=== PATIENT | female | born 1990 | race Caucasian/White ===

== ENCOUNTER 2017-03-26 10:17 | Emergency (ER) | payer MEDICAID ==
[~2017-03-26] VITALS: Ht 167.6 cm; Wt 85.0 kg
[~2017-03-26 10:17] MED LIST: PROM25TA10 PO
[2017-03-26 10:20] VITALS: BP 116/59; PULSE 76; RESP 16; TEMP 98.4; O2SAT 100
[2017-03-26] MEDS ORDERED: prenatal vitamins (10:40)
[2017-03-26] MEDS ORDERED: ONDANSETRON HCL 4 MG/2 ML VIAL IV PUSH ONE (11:30)
--- NOTE | 2017-03-26 11:38 | PD ---
HPI Chief Complaint: GI Complaint Time Seen by Provider: 10:45 Travel History International Travel<30 days: No Contact w/Intl Traveler<30days: No Traveled to known affect area: No History of Present Illness HPI 27yo F who is 12 weeks 2 days per LMP of 12/30/16 presents to the ED with c/o nausea and vomiting. Pt states she has occasional periumbilical pain with the vomiting. Denies any fever, chest pain, sob, dysuria, hematuria, vaginal bleeding, focal weakness or numbness. Pt has OBGYN Dr. Aguirre and called her and was told to come to the ED. Pt had US this that showed IUP with heart rate. PFSH Past Medical History Cancer: No Cardiovascular Problems: No Cerebrovascular Accident: No Diminished Hearing: No Endocrine: No Gastrointestinal Disorders: No Genitourinary: No Headaches: Yes Immune Disorder: No Implanted Vascular Access Dvce: No Musculoskeletal: No Neurologic: Yes Psychiatric: No Reproductive: No Respiratory: Yes Immunizations Current: Yes Migraines: No Seizures: No ?: LMP: 01/29/17 : 5 Para: 2 Miscarriage: 2 Past Surgical History Abdominal Surgery: Yes (UMBILICAL HERNIA) Cardiac Surgery: No Section: Yes (x2) Cholecystectomy: Yes Ear Surgery: No Endocrine Surgery: No Eye Surgery: No Gynecologic Surgery: Yes Neurologic Surgery: No Oral Surgery: No Pacemaker: No Thoracic Surgery: No Other Surgery: Yes (UMBILICAL HERNIA) Social History Alcohol Use: No Tobacco Use: No Substance Use: No Allergies-Medications (Allergen,Severity, Reaction): Coded Allergies: No Known Allergies (Verified , 03/25/17) Reported Meds & Prescriptions Reported Meds & Active Scripts Active Phenergan (Promethazine HCl) 25 Mg Tablet 25 Mg PO Q6H PRN Reported [ vitamins] DAILY Review of Systems Except as stated in HPI: all other systems reviewed are Neg Physical Exam Narrative GENERAL: 27yo F in mild distress. SKIN: Focused skin assessment warm/dry. HEAD: Atraumatic. Normocephalic. CARDIOVASCULAR: Regular rate and rhythm. No murmur appreciated. RESPIRATORY: No accessory muscle use. Clear to auscultation. Breath sounds equal bilaterally. GASTROINTESTINAL: Abdomen soft, non-tender, nondistended. No rebound tenderness or guarding. MUSCULOSKELETAL: No obvious deformities. No clubbing. No cyanosis. No edema. NEUROLOGICAL: Awake and alert. No obvious cranial nerve deficits. Motor grossly within normal limits. Normal speech. PSYCHIATRIC: Appropriate mood and affect; insight and judgment normal. Data Data Last Documented VS Vital Signs Date Time Temp Pulse Resp B/P Pulse Ox O2 Delivery O2 Flow Rate FiO2 03/26/17 10:20 98.4 76 16 116/59 100 Room Air Orders Ondansetron Inj (Zofran Inj) (03/26/17 11:30) Complete Blood Count With Diff (03/26/17 11:27) Comprehensive Metabolic Panel (03/26/17 11:27) Beta Hcg (Quant/Titer) (03/26/17 11:27) Urinalysis - C+S If Indicated (03/26/17 11:27) Sodium Chlor 0.9% 1000 Ml Inj (Ns 1000 M (03/26/17 12:30) Labs Laboratory Tests Test 03/26/17 11:34 White Blood Count 8.1 TH/MM3 Red Blood Count 3.99 MIL/MM3 Hemoglobin 11.8 GM/DL Hematocrit 34.9 % Mean Corpuscular Volume 87.6 FL Mean Corpuscular Hemoglobin 29.6 PG Mean Corpuscular Hemoglobin 33.8 % Concent Red Cell Distribution Width 12.3 % Platelet Count 265 TH/MM3 Mean Platelet Volume 7.8 FL Neutrophils (%) (Auto) 67.8 % Lymphocytes (%) (Auto) 22.9 % Monocytes (%) (Auto) 8.3 % Eosinophils (%) (Auto) 0.3 % Basophils (%) (Auto) 0.7 % Neutrophils # (Auto) 5.5 TH/MM3 Lymphocytes # (Auto) 1.9 TH/MM3 Monocytes # (Auto) 0.7 TH/MM3 Eosinophils # (Auto) 0.0 TH/MM3 Basophils # (Auto) 0.1 TH/MM3 CBC Comment DIFF FINAL Differential Comment Urine Color YELLOW Urine Turbidity CLEAR Urine pH 8.0 Urine Specific [place] 1.009 Urine Protein NEG mg/dL Urine Glucose (UA) NEG mg/dL Urine Ketones NEG mg/dL Urine Occult Blood NEG Urine Nitrite NEG Urine Bilirubin NEG Urine Urobilinogen LESS THAN 2.0 MG/DL Urine Leukocyte Esterase TRACE Urine RBC 2 /hpf Urine WBC 3 /hpf Urine Squamous Epithelial 4 /hpf Cells Urine Bacteria OCC /hpf Urine Mucus FEW /lpf Microscopic Urinalysis Comment CULT NOT INDICATED Sodium Level 136 MEQ/L Potassium Level 3.5 MEQ/L Chloride Level 105 MEQ/L Carbon Dioxide Level 24.3 MEQ/L Anion Gap 7 MEQ/L Blood Urea Nitrogen 7 MG/DL Creatinine 0.64 MG/DL Estimat Glomerular Filtration 110 ML/MIN Rate Random Glucose 84 MG/DL Calcium Level 9.1 MG/DL Total Bilirubin 1.0 MG/DL Aspartate Amino Transf 13 U/L (AST/SGOT) Alanine Aminotransferase 17 U/L (ALT/SGPT) Alkaline Phosphatase 47 U/L Total Protein 7.4 GM/DL Albumin 3.9 GM/DL Human Chorionic Gonadotropin, 530[address] MIU/ML Quant MDM Medical Decision Making Medical Screen Exam Complete: Yes Emergency Medical Condition: Yes Differential Diagnosis Hyperemesis gravidarum vs. dehydration Narrative Course 27yo F with nausea and vomiting for 24 hours. Pt has no abdominal pain on exam. [place] [address]. CMP unremarkable. UA showed WBC 3. Culture not indicated. Negative ketone. Pt given zofran and NS IVF. States she feels much better and no longer nauseous. States she is hungry and now tolerating PO. Diagnosis Primary Impression: Vomiting Qualified Code: R11.2 - Non-intractable vomiting with nausea, unspecified vomiting type Patient Instructions: General Instructions Departure Forms: Tests/Procedures Additional Instructions: Please follow up with your OBGYN in 1-2 days. Return to the ED if symptoms worsen. Med/Other Pt SpecificInfo: No Change to Meds Disposition: 01 DISCHARGE HOME Condition: Stable MaryOksana DO Mar 26, 2017 11:38
[2017-03-26 11:56] LABS: AUTOMATED NEUTROPHIL # 5.5 TH/MM3 (1.8-7.7); BASOPHIL # 0.1 TH/MM3 (0-0.2); BASOPHIL % 0.7 % (0.0-2.0); EOSINOPHIL % 0.3 % (0.0-4.0); HEMATOCRIT 34.9 % (35.0-46.0); HEMO FLAGS DIFF FINAL; LYMPH % 22.9 % (9.0-44.0); LYMPHOCYTE # 1.9 TH/MM3 (1.0-4.8); MEAN CELL VOLUME 87.6 FL (80.0-100.0); MEAN CORPUSCULAR HEMOGLOBIN 29.6 PG (27.0-34.0); MEAN CORPUSCULAR HGB CONC 33.8 % (32.0-36.0); MONO % 8.3 % (0.0-8.0); NEUT % 67.8 % (16.0-70.0); PLATELET COUNT 265 TH/MM3 (150-450); RED BLOOD COUNT 3.99 MIL/MM3 (4.00-5.30); RED CELL DISTRIBUTION WIDTH 12.3 % (11.6-17.2); WHITE BLOOD COUNT 8.1 TH/MM3 (4.0-11.0)
[2017-03-26 12:00] LABS: BACTERIA, URINE OCC /hpf; BLOOD, URINE NEG (NEG); COMMENT (UR) CULT NOT INDICATED; CULTURE IF INDICATED CULT NOT INDICATED; GLUCOSE,URINE NEG (NEG); KETONE, URINE NEG (NEG); MUCUS URINE FEW /lpf (OCC); NITRITE,URINE NEG (NEG); SQUAMOUS EPITHELIAL CELL URINE 4 /hpf (0-5); URINE COLOR YELLOW (YELLW/STRAW)
[2017-03-26 12:22] LABS: ANION GAP 7 MEQ/L (5-15); AST (GOT) 13 U/L (15-37); BICARBONATE 24.3 MEQ/L (21.0-32.0); BLOOD UREA NITROGEN 7 MG/DL (7-18); CHLORIDE 105 MEQ/L (98-107); GLOMERULAR FILTRATION RATE 110 ML/MIN (>89); POTASSIUM 3.5 MEQ/L (3.5-5.1); SODIUM (NA) 136 MEQ/L (136-145)
[2017-03-26 12:23] LABS: ALT (GPT) 17 U/L (10-53)
[2017-03-26] MEDS ORDERED: SODIUM CHLOR 0.9% 1000 ML INJ 1,000 ML IV ONE (12:30)
[2017-03-26 12:39] LABS: ALKALINE PHOSPHATASE 47 U/L (45-117); BETA HCG QUANT 26021 MIU/ML (0-5)
[2017-03-26] MEDS ORDERED: PROM25TA10 PO (12:43)
== END 2017-03-26 14:40 | disposition home or self-care (01) ==
LOC: NEPD 10:17
DX: O21.9 Vomiting of pregnancy, unspecified (principal); Z79.899 Other long term (current) drug therapy; Z3A.12 12 weeks gestation of pregnancy; Z34.91 Encounter for supervision of normal pregnancy, unspecified, first trimester
CPT/HCPCS: 80053; 81001; 84702; 85025; 96374; 99284; J2405; J7030

== ENCOUNTER 2017-06-04 11:08 | Emergency (ER) | payer MEDICAID ==
[~2017-06-04] VITALS: Ht 165.1 cm; Wt 85.0 kg
[~2017-06-04 11:08] MED LIST changes: +NITR1CAP36 PO; +PREN1CAP7 PO; +prenatal vitamins
[2017-06-04 11:10] VITALS: BP 123/56; PULSE 76; RESP 14; TEMP 97.8; O2SAT 100
--- NOTE | 2017-06-04 11:14 | PD ---
Physical Exam Time Seen by Provider: 11:12 Narrative 27-year-old female, 17 weeks , with complaint of right upper tooth pain for the last couple days and right flank pain for the past couple weeks. Denies abdominal pain or cramping. Was treated for UTI with antibiotics a couple weeks ago. Reports vaginal discharge and dysuria. Denies fevers. Reports vomiting throughout her . Patient seen in triage. Vital signs reviewed. Patient taken to medical bed. Data Data Last Documented VS Vital Signs Date Time Temp Pulse Resp B/P (MAP) Pulse Ox O2 Delivery O2 Flow Rate FiO2 06/04/17 11:10 97.8 76 14 123/56 (78) 100 MDM Supervised Visit with HOWIE: Kathy Hernandes Jun 04, 2017 11:14
--- NOTE | 2017-06-04 11:47 | PD ---
HPI Chief Complaint: Complaint Time Seen by Provider: 11:26 Travel History International Travel<30 days: No Contact w/Intl Traveler<30days: No Traveled to known affect area: No History of Present Illness HPI 27-year-old female presents to the emergency department for evaluation of right upper tooth pain, right flank pain, dysuria, abnormal vaginal discharge. Patient reports being 17 weeks . She is a G4, P2 with one miscarriage and 2 live first. Patient reports that she has had chronic right upper tooth pain due to the tubing tripped. However, last 2 days, she has noticed some gingival swelling. She states that her dentist is waiting for to be completed before he does dental work on her. Patient also reports some right flank and has been ongoing for approximately 3 weeks. She states she was diagnosed with a UTI approximately 3 weeks ago and completed a course of antibiotics. Her lamp shade joiner is Windy Castillo. Patient also reports some yellow vaginal discharge for the past 2 days. She denies any risk of STDs reporting that she has been tested which was negative and has not had any new sexual partner since. Patient reports dysuria as well. Patient reports nausea due to which has been the same and is unchanged. She denies any abdominal pain or cramping. No chest pain or shortness of breath. No fevers, but she states she has had chills. PFSH Past Medical History Cancer: No Cardiovascular Problems: No Cerebrovascular Accident: No Diminished Hearing: No Endocrine: No Gastrointestinal Disorders: No Genitourinary: No Headaches: Yes Immune Disorder: No Implanted Vascular Access Dvce: No Musculoskeletal: No Neurologic: Yes Psychiatric: No Reproductive: No Respiratory: Yes Immunizations Current: Yes Migraines: No Seizures: No ?: : 5 Para: 2 Miscarriage: 2 Past Surgical History Abdominal Surgery: Yes (UMBILICAL HERNIA) Cardiac Surgery: No Section: Yes (x2) Cholecystectomy: Yes Ear Surgery: No Endocrine Surgery: No Eye Surgery: No Gynecologic Surgery: Yes Neurologic Surgery: No Oral Surgery: No Pacemaker: No Thoracic Surgery: No Other Surgery: Yes (UMBILICAL HERNIA) Social History Alcohol Use: No Tobacco Use: No Substance Use: No Allergies-Medications (Allergen,Severity, Reaction): Coded Allergies: No Known Allergies (Verified , 04/22/17) Reported Meds & Prescriptions Reported Meds & Active Scripts Active Nitrofurantoin Macrocrystal 100 Mg Cap 100 Mg PO BID Citranatal [place] ( W/O Vit A W/ Fe Fumar) 27-1-260 Mg Cap 1 Cap PO DAILY Phenergan (Promethazine HCl) 25 Mg Tablet 25 Mg PO Q6H PRN Reported [ vitamins] DAILY Review of Systems Except as stated in HPI: all other systems reviewed are Neg Physical Exam Narrative GENERAL: Well-nourished, well-developed female patient, afebrile. SKIN: Focused skin assessment warm/dry. HEAD: Normocephalic. Atraumatic. No facial swelling. ENT: Mucosa pink and moist. No erythema or exudates. No uvular edema. No uvular , palatal, or tonsillar deviation. Airway patent. Nasal turbinates appear normal without nasal blood, purulent drainage or septal hematoma. Bilateral tympanic membranes are clear without erythema or perforation. Back right upper tooth is chipped and gingiva is tenderness to palpation. No obvious abscess. EYES: No scleral icterus. No injection or drainage. NECK: Supple, trachea midline. No JVD or lymphadenopathy. CARDIOVASCULAR: Regular rate and rhythm without murmurs, gallops, or rubs. RESPIRATORY: Breath sounds equal bilaterally. No accessory muscle use. Lungs sounds are clear to auscultation. GASTROINTESTINAL: Abdomen soft, non-tender, nondistended. No abdominal pain to palpation. MUSCULOSKELETAL: No cyanosis, or edema. BACK: Nontender without obvious deformity. No CVA tenderness. GENITOURINARY: Normal external genitalia without lesions or erythema. Vaginal vault with large amount of white drainage noted. Cervical os was closed without drainage. No cervical motion tenderness. Uterus nontender and nonenlarged. Bilateral adnexa nontender without masses. This exam was done with BECKY Feliciano, at bedside. Data Data Last Documented VS Vital Signs Date Time Temp Pulse Resp B/P (MAP) Pulse Ox O2 Delivery O2 Flow Rate FiO2 06/04/17 11:10 97.8 76 14 123/56 (78) 100 Orders Orders Urinalysis - C+S If Indicated (06/04/17 11:34) Gc And Chlamydia Pcr (06/04/17 11:34) Wet Prep Profile (06/04/17 11:34) Heart Tones (06/04/17 11:34) Urine Culture (06/04/17 12:06) Labs Laboratory Tests Test 06/04/17 11:43 06/04/17 12:04 Urine Color LIGHT-YELLOW Urine Turbidity HAZY Urine pH 6.5 Urine Specific [place] 1.006 Urine Protein NEG mg/dL Urine Glucose (UA) NEG mg/dL Urine Ketones TRACE mg/dL Urine Occult Blood SMALL Urine Nitrite NEG Urine Bilirubin NEG Urine Urobilinogen LESS THAN 2.0 MG/DL Urine Leukocyte Esterase SMALL Urine RBC 1 /hpf Urine WBC 3 /hpf Urine Squamous Epithelial Cells 4 /hpf Urine Transitional Epithelial Cells <1 /hpf Urine Bacteria RARE /hpf Microscopic Urinalysis Comment CULT NOT INDICATED Clue Cells (Wet Prep) NONE SEEN Vaginal Trichomonas (Wet Prep) NONE SEEN Vaginal Yeast (Wet Prep) NONE SEEN MDM Medical Decision Making Medical Screen Exam Complete: Yes Emergency Medical Condition: Yes Medical Record Reviewed: Yes Differential Diagnosis UTI vs pyelonephritis vs. gingivitis vs. toothache vs. gingival abscess vs. BV vs. cervicitis Narrative Course 27 year old female presents to the emergency department for evaluation of toothache, dysuria, vaginal discharge. UA, FHT, pelvic exam is ordered and pending. UA shows small leukocyte esterase, small bacteria. FHT are 140 Wet prep is negative for Trichomonas, yeast, bacterial vaginosis. Patient will be discharged with prescription for Keflex for bacteria in the urine, toothache. She is to follow up with her lamp shade joiner. She verbalizes agreement and understanding. The patient was discharged in stable condition with instructions, including return instructions and follow up instructions. Diagnosis Primary Impression: Urinary tract infection Qualified Codes: N30.00 - Acute cystitis without hematuria Additional Impression: Toothache Referrals: [facility] call for appointment Patient Instructions: General Instructions, Toothache (ED), Urinary Tract Infection in (ED) Additional Instructions: Take antibiotic as directed until gone. [id number] Tylenol for pain. Follow-up with your lamp shade joiner. Return to the emergency department for any acute worsening of symptoms. Med/Other Pt SpecificInfo: Prescription(s) given Scripts Cephalexin (Keflex) 500 Mg Cap 500 MG PO Q12H for Infection for 7 Days, #14 CAP 0 Refills Prov: Rachel Tiwari 06/04/17 Disposition: 01 DISCHARGE HOME Condition: Stable Rachel Tiwari Jun 04, 2017 11:47
[2017-06-04 12:03] LABS: BACTERIA, URINE RARE /hpf; BLOOD, URINE SMALL (NEG); COMMENT (UR) CULT NOT INDICATED; CULTURE IF INDICATED CULT NOT INDICATED; GLUCOSE,URINE NEG (NEG); KETONE, URINE TRACE mg/dL (NEG); NITRITE,URINE NEG (NEG); PH, URINE 6.5 (5.0-8.5); SQUAMOUS EPITHELIAL CELL URINE 4 /hpf (0-5); TRANSITIONAL EPI CELLS, URINE <1 /hpf; URINE COLOR LIGHT-YELLOW (YELLW/STRAW)
--- NOTE | 2017-06-04 12:46 | PD ---
Data Data Last Documented VS Vital Signs Date Time Temp Pulse Resp B/P (MAP) Pulse Ox O2 Delivery O2 Flow Rate FiO2 06/04/17 11:10 97.8 76 14 123/56 (78) 100 Orders Orders Urinalysis - C+S If Indicated (06/04/17 11:34) Gc And Chlamydia Pcr (06/04/17 11:34) Wet Prep Profile (06/04/17 11:34) Heart Tones (06/04/17 11:34) Urine Culture (06/04/17 12:06) Labs Laboratory Tests Test 06/04/17 11:43 06/04/17 12:04 Urine Color LIGHT-YELLOW Urine Turbidity HAZY Urine pH 6.5 Urine Specific [place] 1.006 Urine Protein NEG mg/dL Urine Glucose (UA) NEG mg/dL Urine Ketones TRACE mg/dL Urine Occult Blood SMALL Urine Nitrite NEG Urine Bilirubin NEG Urine Urobilinogen LESS THAN 2.0 MG/DL Urine Leukocyte Esterase SMALL Urine RBC 1 /hpf Urine WBC 3 /hpf Urine Squamous Epithelial Cells 4 /hpf Urine Transitional Epithelial Cells <1 /hpf Urine Bacteria RARE /hpf Microscopic Urinalysis Comment CULT NOT INDICATED Clue Cells (Wet Prep) NONE SEEN Vaginal Trichomonas (Wet Prep) NONE SEEN Vaginal Yeast (Wet Prep) NONE SEEN MDM Supervised Visit with HOWIE: Yes Narrative Course The history, exam, and medical decision-making in the associated mid-level provider note were completed with my assistance. I reviewed and agree with the findings presented. I attest that I had a [id number] encounter with the patient on the same day, and personally performed and documented my assessment and findings in the medical record. *My assessment and Findings: 27 year-old woman, early with dental and facial pain, also with some vaginal discharge and some kidney pain. Looks well. We'll check urine, pelvic , supportive treatment for dental infection. Domingo Sánchez MD Jun 04, 2017 12:46
[2017-06-04] MEDS ORDERED: CEPH-460 PO (12:53)
[2017-06-04 13:06] VITALS: BP 103/54
[2017-06-04 16:04] LABS: CHLAMYDIA PCR NOT DETECTED (NOT DETECT); NEISSERIA PCR NOT DETECTED (NOT DETECT)
== END 2017-06-04 13:10 | disposition home or self-care (01) ==
LOC: NEPD 11:08
DX: O23.42 Unspecified infection of urinary tract in pregnancy, second trimester (principal); B96.20 Unspecified Escherichia coli [E. coli] as the cause of diseases classified elsewhere; Z3A.17 17 weeks gestation of pregnancy; K08.89 Other specified disorders of teeth and supporting structures
CPT/HCPCS: 81001; 87077; 87086; 87186; 87210; 87491; 87591; 99283

== ENCOUNTER → 2017-07-17 | Outpatient (CLI) | payer MEDICAID ==
[~2017-07-17] MED LIST changes: -NITR1CAP36 PO; -PROM25TA10 PO
== END ==
LOC: HPND 12:00
PROVIDERS: ATTEND Obstetrics & Gynecology
DX: O35.8XX0 Maternal care for other (suspected) fetal abnormality and damage, not applicable or unspecified (principal); O34.212 Maternal care for vertical scar from previous cesarean delivery; Z68.31 Body mass index [BMI] 31.0-31.9, adult
CPT/HCPCS: 76811; 76825; 76827; 93325

== ENCOUNTER → 2017-08-19 | Outpatient (CLI) | payer MEDICAID ==
[~2017-08-19] MED LIST changes: +SULF1TAB23 PO
== END ==
LOC: HPND 08:37
PROVIDERS: ATTEND Obstetrics & Gynecology
DX: O35.8XX0 Maternal care for other (suspected) fetal abnormality and damage, not applicable or unspecified (principal); O34.212 Maternal care for vertical scar from previous cesarean delivery; O99.212 Obesity complicating pregnancy, second trimester; E66.9 Obesity, unspecified; Z68.41 Body mass index [BMI] 40.0-44.9, adult
CPT/HCPCS: 76816

== ENCOUNTER → 2017-09-16 | Outpatient (CLI) | payer MEDICAID ==
[~2017-09-16] MED LIST changes: -SULF1TAB23 PO
== END ==
LOC: HPND 08:40
PROVIDERS: ATTEND Obstetrics & Gynecology
DX: O35.8XX0 Maternal care for other (suspected) fetal abnormality and damage, not applicable or unspecified (principal); O99.212 Obesity complicating pregnancy, second trimester; E66.9 Obesity, unspecified; O34.212 Maternal care for vertical scar from previous cesarean delivery
CPT/HCPCS: 76816

== ENCOUNTER 2017-10-30 16:37 | Emergency (ER) | payer MEDICAID ==
[~2017-10-30 16:37] MED LIST changes: +PREN1CHW7 PO
--- NOTE | 2017-10-30 17:31 | PD ---
HPI Chief Complaint Decreased movement and lower abdominal pain Date Seen: Oct 30, 2017 Time Seen: 17:26 Travel History International Travel<30 Days: No Contact w/Intl Traveler<30Days: No Known Affected Area: No History of Present Illness HPI 27-year-old at 37 weeks 6 days comes in complaining of decreased movement 1 day and lower abdominal pain off and on since Saturday night. Patient was seen in the office today and had a cervical exam cervix was closed at this time. Patient has a history of a two-vessel cord with a normal level 2 ultrasound. History of 2 prior section and she had a set up for November 2 Weeks Gestation: 37 Para: 2 : 5 History Past Medical History Medical History: Denies Significant Hx Obstetric History Obstetric History Cholecystectomy 2 Family History Family History: Negative Social History Alcohol Use: No Tobacco Use: No Substance Abuse: No Allergies-Medications (Allergen,Severity, Reaction): Coded Allergies: No Known Allergies (Verified Allergy, Unknown, 10/30/17) Home Meds Active Scripts Vit W/ Ferric Phospha (Vitafol Gummies 3.33-0.333-34.8 mg) 1 Chw Chw, 3.33 CAP PO DAILY Y for daily for 90 Days, #90 CAP 3 Refills Prov:Hay Issa MD 09/30/17 W/O Vit A W/ Fe Fumar (Citranatal [place]) 27-1-260 Mg Cap, 1 CAP PO DAILY for Nutritional Supplement, #30 CAP 2 Refills Prov:Desire Diaz CNM [facility] 04/22/17 Reported Medications [ vitamins] No Conflict Check, DAILY 03/26/17 Review of Systems Except as stated in HPI: all other systems reviewed are Neg Physical Exam Narrative GENERAL: Well-nourished, well-developed patient. SKIN: Warm and dry. HEAD: Normocephalic and atraumatic. EYES: No scleral icterus. No injection or drainage. ENT: No nasal drainage noted. Mucous membranes pink. Airway patent. NECK: Supple, trachea midline. No JVD. CARDIOVASCULAR: Regular rate and rhythm without murmurs, gallops, or rubs. RESPIRATORY: Breath sounds equal bilaterally. No accessory muscle use. ABDOMEN/GI: Abdomen soft, non-tender, bowel sounds present, no rebound, no guarding Gravid to [-37] weeks size Fundal Height: [-] GENITOURINARY: External Genitalia: intact and normal in appearance BUS glands: [-Normal] Cervix: [Posterior-] Dilatation: [-Closed] Effacement: [-Long] Station: [-3-] Presentation: [Vertex-] Membranes: [intact or ruptured] intact Uterine Contractions: [-] Irregular FHT's: Category: [-] 1 Baseline: [-] 150 Reactive: [-] Moderate Variability: [-] Moderate Decels: [-] Absent EXTREMITIES: No cyanosis or edema. BACK: Nontender without obvious deformity. No CVA tenderness. NEUROLOGICAL: Awake and alert. Motor and sensory grossly within normal limits. Five out of 5 muscle strength in all muscle groups. Normal speech. Data Data Vital Signs Reviewed: Yes [facility] Medical Record Reviewed: Yes Plan 27-year-old at 37 weeks 6 days with occasional contractions, round ligament pain Decreased movement with a normal nonstress test-if decreased movement were to continue would recommend twice-weekly testing until her section History of two-vessel cord Return to hospital for any symptoms of labor precautions were reviewed with the patient Diagnosis Diagnosis: Primary Impression: 37 weeks gestation of Additional Impressions: Two vessel umbilical cord in [place] , antepartum Decreased movements in third trimester Irregular uterine contractions Previous section complicating , antepartum condition or complication Disposition: 01 DISCHARGE HOME Stephenie Silva MD Oct 30, 2017 17:31
== END 2017-10-30 17:42 | disposition home or self-care (01) ==
LOC: HOBED 16:37
DX: O36.8130 Decreased fetal movements, third trimester, not applicable or unspecified (principal); Z3A.37 37 weeks gestation of pregnancy; R10.30 Lower abdominal pain, unspecified
CPT/HCPCS: 59025

== ENCOUNTER 2017-11-07 08:23 | Inpatient (IN) | payer MEDICAID ==
[~2017-11-07] VITALS: Ht 167.6 cm; Wt 108.0 kg
[2017-11-07] VITALS (14 sets, daily range): BP systolic 105–117; BP diastolic 54–76; PULSE 61–80; RESP 16–18; TEMP 97.6–98.6; O2SAT 99–100
[~2017-11-07 08:23] MED LIST changes: -PREN1CHW7 PO; -prenatal vitamins
[2017-11-07] MEDS ORDERED: LACTATED RINGER'S 1000 ML INJ 1,000 ML IV ONE (09:11)
--- NOTE | 2017-11-07 09:32 | HHI.HP ---
HPI Chief Complaint 27-year-old at 39/0 presenting for scheduled . Travel History International Travel<30 Days: No Contact w/Intl Traveler<30Days: No History of Present Illness HPI 27-year-old at 39/0 presenting for scheduled . Normal light white discharge. Denies contractions, large discharge of fluid, abnormal discharge color/smell, dysuria, hematuria, frequency, change in urine smell/ color, change in bowel habits, nausea, vomiting, fever, chills, abdominal pain, chest pain, shortness of breath, headache, change in vision. Reports normal movement. No other complaints today. Weeks Gestation: 39 Para: 2 : 5 History Past Medical History Medical History: Denies Significant Hx Past Surgical History Narrative Surgical 2 Cholecystectomy Family History Family History: Negative Social History Alcohol Use: No Tobacco Use: No Substance Abuse: No Allergies-Medications (Allergen,Severity, Reaction): Coded Allergies: No Known Allergies (Verified Allergy, Unknown, 10/30/17) Home Meds Active Scripts W/O Vit A W/ Fe Fumar (Citranatal [place]) 27-1-260 Mg Cap, 1 CAP PO DAILY for Nutritional Supplement, #30 CAP 2 Refills Prov:Desire Diaz CNM [facility] 04/22/17 Review of Systems General / Constitutional: No: Fever, Chills Eyes: No: Diploplia, Blurred Vision, Visual changes, Pain HENT: No: Headaches, Vertigo Cardiovascular: No: Irregular Rhythm, Chest Pain or Discomfort, Palpitations Respiratory: No: Cough, Short of Breath, Wheezing Gastrointestinal: No: Nausea, Vomiting, Diarrhea, Abdominal Pain, Hematemesis, Hematochezia, Constipation, Changes in Bowel Habits Genitourinary: No: Urgency, Frequency, Dysuria, Nocturia, Hematuria Musculoskeletal: No: Limited ROM, Weakness Skin: No Rash, No Itching, No Dryness Neurologic: No: Weakness, Dizziness Psychiatric: No: Anxiety, Depression Endocrine: No: Polydipsia, Polyuria Hematologic/Lymphatic: No Easy Bruising, No Lymph Node Enlargement Physical Exam Narrative GENERAL: Well-nourished, well-developed patient. SKIN: Warm and dry. HEAD: Normocephalic and atraumatic. EYES: No scleral icterus. No injection or drainage. ENT: No nasal drainage noted. Mucous membranes pink. Airway patent. NECK: Supple, trachea midline. No JVD. CARDIOVASCULAR: Regular rate and rhythm without murmurs, gallops, or rubs. RESPIRATORY: Breath sounds equal bilaterally. No accessory muscle use. ABDOMEN/GI: Abdomen soft, non-tender, bowel sounds present, no rebound, no guarding FHT's: Category: 1 Baseline: 135 Reactive: Yes Variability: Moderate Decels: None EXTREMITIES: No cyanosis or edema. BACK: Nontender without obvious deformity. No CVA tenderness. NEUROLOGICAL: Awake and alert. Motor and sensory grossly within normal limits. Five out of 5 muscle strength in all muscle groups. Normal speech. Caprini VTE Risk Assessment Caprini VTE Risk Assessment: No/Low Risk (score <= 1) Data Data Vital Signs Reviewed: Yes Orders Orders Admit To Inpatient (11/07/17 ) Code Status (11/07/17 09:11) Vital Signs (Adult) .ON ADMISSION (11/07/17 09:11) Activity Oob Ad Estephania (11/07/17 09:11) Heart (11/07/17 09:11) Urinary Catheter Management KEN.Q8H (11/07/17 09:11) ^ Preps (11/07/17 09:11) Scd / Nikolas / Foot Pump KEN.QSHIFT (11/07/17 09:11) ^ Ultrasound For Locatio (11/07/17 09:11) Diet Npo (11/07/17 Breakfast) Lactated Ringer's 1000 Ml Inj (Lr 1000 M (11/07/17 09:11) Lactated Ringer's 1000 Ml Inj (Lr 1000 M (11/07/17 09:41) Citric Acid-Sodium Citrate Liq (Bicitra (11/07/17 10:45) Type And Screen (11/07/17 09:11) Complete Blood Count With Diff (11/07/17 09:11) Urinalysis - C+S If Indicated (11/07/17 09:11) Drug Screen, Random Urine (11/07/17 09:11) Inpatient Certification (11/07/17 ) Specimen To Be Collected PRN (11/07/17 09:11) Specimen To Be Collected PRN (11/07/17 09:11) Cefazolin 2 Gm Premix (Ancef 2 Gm Premix (11/07/17 10:15) Assessment/Plan Assessment and Plan 27-year-old at 39/0 who presented for scheduled . Currently without signs of labor, no signs of infection. - section preop management -FHT category 1, reassuring - section today D/W Dr. Hima Rosario,Karl Mireles MD R1 Nov 07, 2017 09:32
[2017-11-07] MEDS ORDERED: LACTATED RINGER'S 1000 ML INJ 1,000 ML IV SCH ×2 (09:41→17:12)
[2017-11-07 09:57] LABS: AUTOMATED NEUTROPHIL # 8.5 TH/MM3 (1.8-7.7); BASOPHIL % 0.3 % (0.0-2.0); EOSINOPHIL # 0.1 TH/MM3 (0-0.4); EOSINOPHIL % 0.5 % (0.0-4.0); HEMATOCRIT 33.9 % (35.0-46.0); HEMOGLOBIN 11.6 GM/DL (11.6-15.3); LYMPH % 14.6 % (9.0-44.0); LYMPHOCYTE # 1.6 TH/MM3 (1.0-4.8); MEAN CELL VOLUME 83.7 FL (80.0-100.0); MEAN CORPUSCULAR HEMOGLOBIN 28.6 PG (27.0-34.0); MEAN CORPUSCULAR HGB CONC 34.2 % (32.0-36.0); MEAN PLATELET VOLUME 8.1 FL (7.0-11.0); MONO % 5.8 % (0.0-8.0); MONOCYTE # 0.6 TH/MM3 (0-0.9); NEUT % 78.8 % (16.0-70.0); PLATELET COUNT 296 TH/MM3 (150-450); RED BLOOD COUNT 4.05 MIL/MM3 (4.00-5.30); RED CELL DISTRIBUTION WIDTH 13.2 % (11.6-17.2); WHITE BLOOD COUNT 10.8 TH/MM3 (4.0-11.0)
[2017-11-07] MEDS ORDERED: MORPHINE SULFATE PF 5 MG/10 ML VIAL ONE (10:03)
[2017-11-07] MEDS ORDERED: ACETAMINOPHEN 1000 MG/100 ML 100 ML IV ONE ×2 (10:03→11:00)
[2017-11-07 10:06] LABS: BACTERIA, URINE MOD /hpf; BILIRUBIN, URINE NEG (NEG); BLOOD, URINE NEG (NEG); GLUCOSE,URINE NEG (NEG); KETONE, URINE NEG (NEG); MUCUS URINE FEW /lpf (OCC); NITRITE,URINE POS (NEG); SQUAMOUS EPITHELIAL CELL URINE 14 /hpf (0-5); URINE COLOR YELLOW (YELLW/STRAW); URINE LEUKOCYTE ESTERASE SMALL (NEG)
[2017-11-07] MEDS ORDERED: ceFAZolin 2 GM PREMIX 50 ML IV SCH (10:15)
--- NOTE | 2017-11-07 10:39 | HHI.PR ---
[facility] Note Note R/B/A of were discussed with the patient. Specifically we reviewed risks of bleeding, infection, pain, injury to baby or internal organs/nerves/ vessels/structures. We reviewed the rare but possible need for emergency hysterectomy if uncontrolled bleeding occurs. She was also counseled on the rare but possible need for a blood transfusion and the associated risks of allergic reaction, HIV (1:1M), and hepatitis (4:1M). She voiced understanding, all questions were answered, and consents were signed. Pt was advised on risk of subsequent c/s after 3 (accreta, hemorrhage, injury) and was advised on BTL and LARC. She declines BTL at this time. LARC strongly encouraged. Anterior placenta confirmed by US diagnostics to be ABOVE prior incision. Orders have been placed, bicitra and antibiotics administered, SCDs and watkins placed, and RN/ANES/NICU/Charge notified. Mayito Enrique MD Nov 07, 2017 10:39
[2017-11-07] MEDS ORDERED: CITRIC ACID-SODIUM CITRATE LIQ 30 ML UDC PO SCH (10:45)
[2017-11-07] MEDS ORDERED: MIDAZOLAM HCL 2 MG/2 ML VIAL ONE (11:38)
[2017-11-07] MEDS ORDERED: SIMETHICONE 80 MG CHEWABLE TAB PO PRN (12:15)
[2017-11-07] MEDS ORDERED: SODIUM CHLORIDE 0.9% FLUSH 10 ML FLUSH IV FLUSH PRN (12:15)
[2017-11-07] MEDS ORDERED: ACETAMINOPHEN 325 MG TAB PO PRN (12:15)
[2017-11-07] MEDS ORDERED: OXYTOCIN 30 UNITS-500ML PREMIX 500 ML IV ONE (12:15)
[2017-11-07] MEDS ORDERED: KETOROLAC TROMETHAMINE 60 MG/2 ML (IM) VIAL IM PRN (12:15)
[2017-11-07] MEDS ORDERED: oxyCODONE/ACETAMINOPHEN 5 MG/325 MG TAB PO PRN (12:15)
[2017-11-07] MEDS ORDERED: ONDANSETRON HCL 4 MG/2 ML VIAL IV PUSH PRN (12:15)
--- NOTE | 2017-11-07 12:24 | PD.OP ---
Operative Report Date of Surgery: Nov 07, 2017 Preoperative Diagnosis: 1. IUP @ 39.0wks 2. h/o CS x2 Postoperative Diagnosis: same Procedure: rCS Anesthesia: spinal Surgeon: Mayito Enrique Finnish Rubber(s): none Resident Surgeon: none Operation and Findings: Antibiotics: 2g ancef prior to skin incision DVT prophylaxis: SCDs were in place and active throughout the entire procedure EBL: 500cc IVF: 2000cc UOP: 600cc Drain(s): Savage to straight drain Specimen(s): cord blood Findings: thick omental adhesions to rectus fascia, uterine serosa, down to bladder; vtx female delivered at 11:13 wt 3300g and APGARs 9/9 Complications: none Disposition: to PACU in stable condition Technique: The R/B/A were discussed with the pt, all questions answered, and consents signed. The pt was taken to the operating room where spinal anesthesia was found to be adequate. She was then prepped and draped in the normal sterile fashion in the dorsal supine position with leftward tilt. A Pfannenstiel skin incision was then made with the scalpel and carried through to the underlying layer of fascia. The fascia was incised in the midline and the incision extended laterally with Bates scissors. The superior aspect of the fascial incision was grasped with Jessie clamps, elevated, and the underlying rectus muscles dissected off bluntly and with Bates scissors. Attention was then turned to the inferior aspect of this incision which, in a similar fashion, was grasped , tented up with Jessie clamps, and the rectus muscles dissected off bluntly and with Bates scissors. The rectus muscles were then in the midline, and the dense omental adhesions identified. These were carefully dissected through and ligated with vicryl ties. Rectus muscle was released from omentum on the L side. The bladder blade was inserted and the vesicouterine peritoneum identified, grasped with pick-ups, and entered sharply with Metzenbaum scissors. This incision was extended laterally and a bladder flap created digitally. The bladder blade was then reinserted and the lower uterine segment incised in a transverse fashion with the scalpel. The uterine incision was stretched superiorly and inferiorly. The bladder blade was removed and the 's head delivered atraumatically followed by the body. Delayed cord clamping ensued for 45sec while the infant was dried, suctioned, and stimulated. The cord was double clamped and cut and handed off to the waiting team. The placenta expelled with manual fundal massage. The uterus was exteriorized and cleared of all clots and debris. The uterine incision was repaired with 0- vicryl in a running, locked fashion. A second layer using 0-monocryl suture was used to obtain excellent hemostasis via embrication. The posterior cul-de-sac was suctioned and the uterus was returned to the abdomen. The gutters were cleared of all clots and debris. Areas of oozing on the hysterotomy were made hemostatic with a combination of monocryl sutures, Bovie, and Devon. The underneath of the rectus fascia was inspected and areas of oozing made hemostatic with the Bovie. The fascia was closed with 0-vicryl in a running fashion. The subcutaneous tissue was irrigated with saline and made hemostatic with the Bovie. The subcutaneous layer was reapproximated with plain gut with simple interrupted stiches. The skin was closed with 4-0 monocryl. Steristrips were placed and the incision dressed appropriately with a pressure dressing. The patient tolerated the procedure well. She was taken to the recovery room in stable condition. Sponge, lap, instrument, and needle counts were correct x3. Pt and partner were counseled that while no uterine window was seen, the lower uterine segment was thin and the challenging due to adhesive disease. I counseled that an IUD would be highly advisable. Explained that while it may not be unsafe to have 1 final baby, conception should be delayed 2-3 years to allow complete healing and she would be at higher risk of accreta, uterine rupture, hemorrhage, and c-hyst. I strongly advised against more than 1 additional ever. Mayito Enrique MD Nov 07, 2017 12:24
[2017-11-07] MEDS ORDERED: SODIUM CHLORIDE 0.9% INJ 100 ML ONE (12:38)
[2017-11-07] MEDS ORDERED: CARBOPROST TROMETHAMINE 250 MCG/ML VIAL ONE (12:39)
[2017-11-07] MEDS ORDERED: EPIDURAL-NALOXONE HCL 0.4 MG/ML AMP IV PUSH PRN (15:00)
[2017-11-07] MEDS ORDERED: EPIDURAL-DIPHENHYDRAMINE HCL 50 MG CAP PO PRN (15:00)
[2017-11-07] MEDS ORDERED: EPIDURAL-DO NOT ADMINISTER ANTICOAGULANTS PRN (15:00)
[2017-11-07] MEDS ORDERED: EPIDURAL-DIPHENHYDRAMINE HCL 50 MG/ML VIAL IV PUSH PRN (15:00)
[2017-11-07] MEDS ORDERED: EPIDURAL-NO SYSTEMIC NARCOTICS PRN (15:00)
[2017-11-07] MEDS ORDERED: ACETAMINOPHEN 1000 MG/100 ML 100 ML IV SCH (19:00)
[2017-11-07] MEDS ORDERED: SODIUM CHLORIDE 0.9% FLUSH 10 ML FLUSH IV FLUSH SCH (21:00)
[2017-11-07] MEDS ORDERED: ZOLPIDEM TARTRATE 5 MG TAB PO PRN (21:00)
[2017-11-07] MEDS ORDERED: OXYTOCIN 30 UNITS-500ML PREMIX 500 ML IV PRN (22:15)
[2017-11-08 00:20] VITALS: BP 103/56; PULSE 76; RESP 18; TEMP 98.5
[2017-11-08] MEDS: DOCUSATE SODIUM 50 MG/SENNA 8.6 MG TAB PO PRN ×2 (00:33→19:49)
[2017-11-08] MEDS: oxyCODONE/ACETAMINOPHEN 5 MG/325 MG TAB PO PRN ×6 (00:34→23:31)
[2017-11-08 05:30] VITALS: BP 102/57; PULSE 70; RESP 18; TEMP 98
[2017-11-08 06:02] LABS: AUTOMATED NEUTROPHIL # 9.7 TH/MM3 (1.8-7.7); BASOPHIL % 0.2 % (0.0-2.0); EOSINOPHIL % 0.3 % (0.0-4.0); HEMATOCRIT 27.9 % (35.0-46.0); HEMOGLOBIN 9.6 GM/DL (11.6-15.3); LYMPH % 15.6 % (9.0-44.0); MEAN CELL VOLUME 83.9 FL (80.0-100.0); MEAN CORPUSCULAR HEMOGLOBIN 28.8 PG (27.0-34.0); MEAN CORPUSCULAR HGB CONC 34.3 % (32.0-36.0); MONO % 8.5 % (0.0-8.0); MONOCYTE # 1.1 TH/MM3 (0-0.9); NEUT % 75.4 % (16.0-70.0); PLATELET COUNT 244 TH/MM3 (150-450); RED BLOOD COUNT 3.32 MIL/MM3 (4.00-5.30); RED CELL DISTRIBUTION WIDTH 13.2 % (11.6-17.2); WHITE BLOOD COUNT 12.8 TH/MM3 (4.0-11.0)
--- NOTE | 2017-11-08 08:42 | HHI.OB ---
Subjective Post Operative Day: 1 Remarks Postoperative day #1 AFVSS overnight. Incision not draining. Decreased lochia. Denies dysuria. No breast tenderness. She is feeding the baby via breast. Appetite good. No nausea or vomiting. Currently without flatus/bowel movement. Ambulating well. Denies calf pain or shortness of breath. Otherwise, she is doing well this morning and has no other complaints. Objective Vitals/I&O Vital Signs Date Time Temp Pulse Resp B/P (MAP) Pulse Ox O2 Delivery O2 Flow Rate FiO2 11/08/17 05:30 98.0 70 18 102/57 (72) 11/08/17 00:20 98.5 11/08/17 00:20 76 18 103/56 (72) 11/07/17 20:32 98.0 11/07/17 16:00 97.9 68 16 112/60 (77) 11/07/17 13:42 97.6 61 18 113/69 (84) 11/07/17 12:54 98.0 68 18 109/57 (74) 99 11/07/17 12:44 110/57 (74) 11/07/17 12:43 66 18 100 11/07/17 12:30 68 18 105/54 (71) 100 11/07/17 12:15 76 18 113/57 (75) 11/07/17 12:15 98.2 100 11/07/17 10:30 78 11/07/17 10:25 77 11/07/17 10:20 74 11/07/17 10:15 98.6 80 18 11/07/17 10:10 73 117/76 (90) 11/07/17 10:10 73 11/07/17 10:05 65 Result Diagram: 11/08/17 0501 Objective Remarks GENERAL: Well-nourished, well-developed patient. CARDIOVASCULAR: Regular rate and rhythm without murmurs, gallops, or rubs. RESPIRATORY: Breath sounds equal bilaterally. No accessory muscle use. ABDOMEN/GI: Abdomen soft, non-tender, bowel sounds present. Incision: Clean, dry and intact. Fundus: Firm, non-tender at umbilicus. GENITOURINARY: Light to moderate bleeding. EXTREMITIES: No cyanosis or edema, non-tender, without signs of DVT. Medications and IVs Current Medications Medications (Trade) Dose Ordered Sig/Dario Route Start Time Stop Time Status Last Admin (Bicitra Liq) 30 ml [employer]EST [employer]SERVATION WORKER PO 11/07/17 10:45 11/11/17 10:44 11/07/17 10:29 Cefazolin Sodium/ Dextrose 50 ml @ 100 mls/hr [employer]SERVATION WORKER IV 11/07/17 10:15 11/11/17 10:14 11/07/17 10:29 Lactated Ringer's 1,000 ml @ 100 mls/hr Q10H IV 11/07/17 17:12 11/08/17 13:11 Oxytocin 500 ml @ 100 mls/hr UNSCH X1 PRN IV 11/07/17 22:15 11/08/17 22:14 (NS Flush) 2 ml BID IV FLUSH 11/07/17 21:00 (NS Flush) 2 ml UNSCH PRN IV FLUSH 11/07/17 12:15 (Mylicon Chew) 80 mg QID PRN PO 11/07/17 12:15 (Tylenol) 650 mg Q6H PRN PO 11/07/17 12:15 (Toradol Inj) 30 mg Q6H PRN IM 11/07/17 12:15 11/08/17 12:14 (Percocet 5-325 Mg) 1 tab Q4H PRN PO 11/07/17 12:15 11/08/17 06:03 (Percocet 5-325 Mg) 2 tab Q4H PRN PO 11/07/17 12:15 (Jackie-Colace) 2 tab Q12H PRN PO 11/07/17 12:15 11/08/17 00:33 (Ambien) 5 mg HS PRN PO 11/07/17 21:00 (M-M-R Ii Inj) 0.5 ml ONCE ONCE SQ 11/08/17 16:00 11/08/17 16:01 (Boostrix Inj) 0.5 ml ONCE ONCE IM 11/08/17 16:00 11/08/17 16:01 (Zofran Inj) 4 mg Q6H PRN IV PUSH 11/07/17 12:15 Miscellaneous Information NO SYSTEMIC NARCOTICS TO BE GIVEN FO... UNSCH PRN .XX 11/07/17 15:00 11/08/17 14:59 (Narcan Inj) 0.4 mg UNSCH PRN IV PUSH 11/07/17 15:00 11/08/17 14:59 (Benadryl Inj) 25 mg Q6H PRN IV PUSH 11/07/17 15:00 11/08/17 14:59 11/07/17 15:03 (Benadryl) 50 mg Q6H PRN PO 11/07/17 15:00 11/08/17 14:59 11/07/17 21:36 Miscellaneous Information ALL NURSING DEPARTMENTS UNSCH PRN .XX 11/07/17 15:00 11/08/17 14:59 Assessment/Plan Assessment and Plan 27y/o female who is POD#1 s/p CXN. -Continue routine care. -Percocet and Motrin PRN pain. -Encouraged OOB. Advised pelvic rest for 6 wks. Will need a f/u appt. in 1 wk for incision check. -Re: ctrl, she would like to follow-up with outpatient OB for a tubal ligation. -D/c likely in 1-2 more days. CESAR Rosario,Karl Mireles MD R1 Nov 08, 2017 08:42
[2017-11-08] MEDS: IBUPROFEN 600 MG TAB PO PRN ×2 (09:22→19:48)
[2017-11-08 12:00] VITALS: BP 110/61; PULSE 93; RESP 18; TEMP 98.5; O2SAT 99
[2017-11-08] MEDS ORDERED: DEXAMETHASONE SOD PHOS 4 MG/ML VIAL IV ONE (12:37)
[2017-11-08] MEDS ORDERED: OXYTOCIN 10 UNIT/ML AMP IV ONE (12:37)
[2017-11-08] MEDS ORDERED: ONDANSETRON HCL 4 MG/2 ML VIAL IV ONE (12:37)
[2017-11-08] MEDS ORDERED: ePHEDrine/NS 25 MG/5 ML SYRINGE IV ONE (12:37)
[2017-11-08] MEDS ORDERED: DIPHTH/TETANUS/ACEL PERTUSSIS (BOOSTER) 0.5 ML VIAL/PFS IM ONE (16:00)
[2017-11-08] MEDS ORDERED: MEASLES, MUMPS, RUBELLA VACCINE 0.5 ML VIAL SQ ONE (16:00)
[2017-11-08 20:00] VITALS: TEMP 98.2
[2017-11-09] MEDS: IBUPROFEN 600 MG TAB PO PRN ×2 (03:55→12:44)
[2017-11-09] MEDS: oxyCODONE/ACETAMINOPHEN 5 MG/325 MG TAB PO PRN ×3 (03:55→12:44)
[2017-11-09 08:00] VITALS: BP 114/69; PULSE 68; RESP 18; TEMP 97.8
[2017-11-09] MEDS ORDERED: IBUP-232 PO (08:58)
[2017-11-09] MEDS ORDERED: OXYC2.5T PO (08:58)
--- NOTE | 2017-11-09 08:58 | HHI.DCPOC ---
Discharge Care Plan Diagnosis: (1) delivery, delivered, current hospitalization Report Symptoms to Your Doctor -Temperature above 100.5 degrees -Redness, of incision or excessive or foul smelling drainage -Unusual pain or calf pain -Increased vaginal bleeding -Painful or difficulty urinating -Feelings of extreme sadness or anxiety after 2 weeks Goals to Promote Your Health * To prevent worsening of your condition and complications * To maintain your health at the optimal level Directions to Meet Your Goals Take your medications as prescribed Follow your dietary instruction Follow activity as directed Ensure plenty of rest for recovery Drink fluids for hydration Keep your appointments as scheduled Take your immunizations and boosters as scheduled If your symptoms worsen call your PCP, if no PCP go to Urgent Care Center or Emergency Room Smoking is Dangerous to Your Health. Avoid second hand smoke Call the 24-hour crisis hotline for domestic abuse at Rcikie Burnette MD Nov 09, 2017 08:58
--- NOTE | 2017-11-09 09:03 | HHI.OB ---
Subjective Remarks 27 year old s/p C/S at 39 wks gestation, POD 2. AFVSS. Patient reports she is feeling well. Bleeding is decreasing and pain is well-controlled. She is breast feeding and bonding well with baby. Ambulating without difficulties. She is tolerating a diet without nausea or vomiting. She has not had a bowel movement. She has passed gas. Denies chest pain, dysuria, shortness of breath, or calf pain. Objective Vitals/I&O Vital Signs Date Time Temp Pulse Resp B/P (MAP) Pulse Ox O2 Delivery O2 Flow Rate FiO2 11/08/17 20:00 98.2 11/08/17 12:00 93 110/61 (77) 11/08/17 12:00 98.5 18 99 Result Diagram: 11/08/17 0501 Objective Remarks GENERAL: Well-nourished, well-developed patient. CARDIOVASCULAR: Regular rate and rhythm without murmurs, gallops, or rubs. RESPIRATORY: Breath sounds equal bilaterally. No accessory muscle use. ABDOMEN/GI: Abdomen soft, non-tender, bowel sounds present. Incision: Clean, dry and intact. Fundus: Firm, non-tender at umbilicus. GENITOURINARY: Light to moderate bleeding. EXTREMITIES: No cyanosis or edema, non-tender, without signs of DVT. Medications and IVs Current Medications Medications (Trade) Dose Ordered Sig/Daroi Route Start Time Stop Time Status Last Admin (Bicitra Liq) 30 ml DEMAND EQUIPMENT REPAIRER PO 11/07/17 10:45 11/11/17 10:44 11/07/17 10:29 Cefazolin Sodium/ Dextrose 50 ml @ 100 mls/hr [employer] EQUIPMENT REPAIRER IV 11/07/17 10:15 11/11/17 10:14 11/07/17 10:29 (NS Flush) 2 ml BID IV FLUSH 11/07/17 21:00 (NS Flush) 2 ml UNSCH PRN IV FLUSH 11/07/17 12:15 (Mylicon Chew) 80 mg QID PRN PO 11/07/17 12:15 (Tylenol) 650 mg Q6H PRN PO 11/07/17 12:15 (Percocet 5-325 Mg) 1 tab Q4H PRN PO 11/07/17 12:15 11/09/17 08:45 (Percocet 5-325 Mg) 2 tab Q4H PRN PO 11/07/17 12:15 11/08/17 10:16 (Jackie-Colace) 2 tab Q12H PRN PO 11/07/17 12:15 11/08/17 19:49 (Ambien) 5 mg HS PRN PO 11/07/17 21:00 (Zofran Inj) 4 mg Q6H PRN IV PUSH 11/07/17 12:15 (Motrin) 600 mg Q6H PRN PO 11/08/17 08:45 11/09/17 03:55 Assessment/Plan Assessment and Plan 27y/o female who is POD#2 s/p CXN. -Continue routine care -Percocet and Motrin PRN pain -Encouraged OOB. Advised pelvic rest for 6 wks. Will need a f/u appt. in 1 wk for incision check. -Re: ctrl, she would like to follow-up with outpatient OB for IUD -D/c today if baby cleared Rickie Burnette MD Nov 09, 2017 09:03
[2017-11-09] MEDS: DOCUSATE SODIUM 50 MG/SENNA 8.6 MG TAB PO PRN (12:44)
== END 2017-11-09 14:32 | disposition home or self-care (01) | DRG 766 ==
LOC: H2EB 08:23 → H1EA 13:05
PROVIDERS: ADMIT Obstetrics & Gynecology; ATTEND Obstetrics & Gynecology
PROC: 10D00Z1 Extraction of Products of Conception, Low, Open Approach (ICD-10-PCS; principal; 2017-11-07)
DX: O34.219 Maternal care for unspecified type scar from previous cesarean delivery (principal); Z37.0 Single live birth; Z3A.39 39 weeks gestation of pregnancy
CPT/HCPCS: 59025; 80307; 81001; 85025; 86850; 86900; 86901; 87077; 87086; 87186; 90715; G0481; J0131; J0690; J1100; J1200; J2250; J2274; J2405; J2590; J3010; J7120; Q0163